=== PATIENT | male | born 1980 | race Hispanic/Latino ===

== ENCOUNTER 2020-07-07 03:23 | Emergency (ER) | payer OTHER ==
[2020-07-07 04:40] LABS: Absolute Lymphocytes (CBC) 1.7 K/uL (0.7-4.9); Basophils % 0.6 % (0-1.3); Hematocrit 47.3 % (39.6-49.0); Lymphocytes % 25.9 % (15.3-44.8); MPV 11.3 fL (7.6-11.3); RBC Red Blood Cell Count 5.07 M/uL (4.33-5.43)
[2020-07-07] MEDS ORDERED: ONDANSETRON 4 MG/2 ML VIAL ONE (04:43)
[2020-07-07] MEDS ORDERED: NA CHLORIDE 0.9% 1,000 ML ONE (04:43)
[2020-07-07 04:53] LABS: Albumin 3.8 g/dL (3.4-5.0); Bilirubin Direct 0.1 mg/dL (0-0.2); Bilirubin Total 0.4 mg/dL (0.2-1.0); Potassium 3.6 mmol/L (3.5-5.1); Protein, Total 8.4 g/dL (6.4-8.2)
--- NOTE | 2020-07-07 06:07 | EDPHYS ---
Physician Documentation [facility] Name: Lucas Ramos Age: 39 yrs Sex: Male : 1980 Arrival Date: 07/07/2020 Time: 03:26 Bed 17 Private MD: ED Physician Migue Monique HPI: 07/07 04:12 This 39 yrs old Male presents to ER via Ambulatory with complaints of Fever. pkl 04:12 The patient or guardian reports cough, described as mild, with productive sputum, that pkl is white. Onset: The symptoms/episode began/occurred 4 day(s) ago. Associated signs and symptoms: Pertinent positives: headache, abdominal pain diarrhea. Historical: - Allergies: 03:41 No Known Allergies; rv - PMHx: 03:41 None; rv - PSHx: 03:41 None; rv - Immunization history:: Adult Immunizations up to date. - Social history:: Smoking status: Patient denies any tobacco usage or history of. ROS: 04:12 Eyes: Negative for injury, pain, redness, and discharge, ENT: Negative for injury, pkl pain, and discharge. 04:12 Neck: Negative for stiffness. 04:12 Cardiovascular: Negative for chest pain. 04:12 Respiratory: Positive for cough, with clear sputum. 04:12 Abdomen/GI: Positive for abdominal pain, diarrhea, of the right upper quadrant and left upper quadrant. 04:12 Back: Negative for acute changes. 04:12 : Negative for urinary symptoms. 04:12 MS/extremity: Negative for acute changes. 04:12 Skin: Negative for rash. 04:12 Neuro: Negative for altered mental status. Exam: 04:12 Head/Face: Normocephalic, atraumatic. Eyes: Pupils equal round and reactive to light, pkl extra-ocular motions intact. Lids and lashes normal. Conjunctiva and sclera are non-icteric and not injected. Cornea within normal limits. Periorbital areas with no swelling, redness, or edema. ENT: Nares patent. No nasal discharge, no septal abnormalities noted. Tympanic membranes are normal and external auditory canals are clear. Oropharynx with no redness, swelling, or masses, exudates, or evidence of obstruction, uvula midline. Mucous membranes moist. Neck: Trachea midline, no thyromegaly or masses palpated, and no cervical lymphadenopathy. Supple, full range of motion without nuchal rigidity, or vertebral point tenderness. No Meningismus. Chest/axilla: Normal chest wall appearance and motion. Nontender with no deformity. No lesions are appreciated. Cardiovascular: Regular rate and rhythm with a normal S1 and S2. No gallops, murmurs, or rubs. Normal PMI, no JVD. No pulse deficits. Respiratory: Lungs have equal breath sounds bilaterally, clear to auscultation and percussion. No rales, rhonchi or wheezes noted. No increased work of breathing, no retractions or nasal flaring. Abdomen/GI: Soft, non-tender, with normal bowel sounds. No distension or tympany. No guarding or rebound. No evidence of tenderness throughout. Back: No spinal tenderness. No costovertebral tenderness. Full range of motion. Skin: Warm, dry with normal turgor. Normal color with no rashes, no lesions, and no evidence of cellulitis. MS/ Extremity: Pulses equal, no cyanosis. Neurovascular intact. Full, normal range of motion. Neuro: Awake and alert, GCS 15, oriented to person, place, time, and situation. Cranial nerves II-XII grossly intact. Motor strength 5/5 in all extremities. Sensory grossly intact. Cerebellar exam normal. Normal gait. Vital Signs: 03:37 BP 127 / 86 LA Sitting; Pulse 97 MON; Resp 18 S; Temp 99.4(O); Pulse Ox 98% on R/A; rv Weight 95.25 kg (R); Height 5 ft. 6 in. (167.64 cm) (R); Pain 6/10; 04:37 BP 96 / 64; Pulse 73; Resp 17; Pulse Ox 94% on R/A; rv 05:23 BP 110 / 67; Pulse 85; Resp 16; Pulse Ox 97% on R/A; rv 06:55 BP 105 / 72; Pulse 73; Resp 17; Pulse Ox 96% on R/A; rv 03:37 Body Mass Index 33.89 (95.25 kg, 167.64 cm) rv MDM: 03:53 Patient medically screened. pkl 05:58 Data reviewed: vital signs, nurses notes, lab test result(s), radiologic studies, CT pkl scan. ED course: Patient feeling better. Discussed lab. and CT Scan results with patient. Advised to isolate at home until Covid 19 results available. Return if necessary. Patient understood instructions. 07/07 04:11 Order name: CBC with Diff; Complete Time: 05:05 pkl 07/07 04:11 Order name: Chem 7; Complete Time: 05:05 pkl 07/07 04:11 Order name: Strep pkl 07/07 04:11 Order name: COVID-19 pkl 07/07 04:11 Order name: LFT's; Complete Time: 05:05 pkl 07/07 04:11 Order name: Lipase; Complete Time: 05:05 pkl 07/07 04:24 Order name: Chest Abdomen Pelvis W Cont EDMS Administered Medications: 04:35 Drug: NS 0.9% 1000 ml Route: IV; Rate: 1000 ml; Site: right antecubital; rv 07:06 Follow up: IV Status: Completed infusion; IV Intake: 1000ml rv 04:36 Drug: Zofran (Ondansetron) 4 mg Route: IVP; Site: right antecubital; rv 05:22 Follow up: Response: No adverse reaction; Marked relief of symptoms; Nausea is decreasedrv 06:02 Drug: Zithromax 500 mg Route: IVPB; Infused Over: 1 hrs; Site: right antecubital; rv 07:05 Follow up: IV Status: Completed infusion; IV Intake: 250ml rv Disposition: 07/07/20 06:06 Discharged to Home. Impression: Pneumonia. Possible Covid 19 infection. - Condition is Stable. - Prescriptions for Zithromax Z- Chava 250 mg Oral Tablet - take 1 tablet by ORAL route as directed for 5 days Day 1 - take two (2) tablets one time. Day 2, 3, 4 , 5 take one (1) tablet once daily.; 6 tablet. Guaifenesin AC 10- 100 mg/5 mL Oral Liquid - take 10 milliliters by ORAL route every 8 hours As needed; 120 milliliter. - Medication Reconciliation Form, Thank You Letter, Antibiotic Education, Prescription Opioid Use form. - Follow up: Private Physician; When: 2 - 3 days; Reason: Re-evaluation by your physician. - Problem is new. - Symptoms have improved. Signatures: [facility] Migue Monique MD MD pkSalomon Vargas RN RN rv Corrections: (The following items were deleted from the chart) 04:24 04:12 Chest Abdomen W/ Con+CT.RAD.BRZ ordered. EDMS EDMS 07:06 06:06 07/07/2020 06:06 Discharged to Home. Impression: Pneumonia. Possible Covid 19 rv infection. Condition is Stable. Forms are Medication Reconciliation Form, Thank You Letter, Antibiotic Education, Prescription Opioid Use. Follow up: Private Physician; When: 2 - 3 days; Reason: Re-evaluation by your physician. Problem is new. Symptoms have improved. pkl
--- NOTE | 2020-07-07 06:07 | ER ---
Nurse's Notes [facility] Name: Lucas Ramos Age: 39 yrs Sex: Male : 1980 Arrival Date: 07/07/2020 Time: 03:26 Bed 17 Private MD: Diagnosis: Pneumonia. Possible Covid 19 infection Presentation: 07/07 03:37 Chief complaint: Patient states: MUSCLE ACHE STARTED THURSDAY. THURSDAY, HAD FEVER, COUGH, rv HEADACHE. ALONG WITH DIARRHEA AND ABDOMINAL PAIN. DESCRIBED SHARP, INTERMITTENT, 6/10 PAIN SCALE. Coronavirus screen: Client denies travel out of the [place] in the last 14 days. cough unrelated to allergies, diarrhea, fever, headache, muscle pain, Client presents with at least one sign or symptom that may indicate coronavirus-19. Standard/surgical mask placed on the client. Provider contacted for isolation considerations. The client denies any previous COVID testing. Ebola Screen: No symptoms or risks identified at this time. Initial Sepsis Screen: Does the patient meet any 2 criteria? No. Patient's initial sepsis screen is negative. Does the patient have a suspected source of infection? No. Patient's initial sepsis screen is negative. Risk Assessment: Do you want to hurt yourself or someone else? Patient reports no desire to harm self or others. Onset of symptoms was July 02, 2020 at 08:00. 03:37 Method Of Arrival: Ambulatory 03:37 Acuity: STEPHEN 3 rv Triage Assessment: 03:41 General: Appears comfortable, Behavior is calm, cooperative. Pain: Complains of pain in rv abdomen Pain currently is 6 out of 10 on a pain scale. Quality of pain is described as sharp. EENT: No signs and/or symptoms were reported regarding the EENT system. Neuro: Level of Consciousness is awake, alert, obeys commands, Oriented to person, place, time, situation. Cardiovascular: Patient's skin is warm and dry. Respiratory: Airway is patent Respiratory effort is even, unlabored. GI: Abdomen is flat, non-distended, Reports lower abdominal pain, upper abdominal pain, diarrhea. Derm: Skin is intact. Musculoskeletal: Reports MUSCLE ACHES. Historical: - Allergies: 03:41 No Known Allergies; rv - PMHx: 03:41 None; rv - PSHx: 03:41 None; rv - Immunization history:: Adult Immunizations up to date. - Social history:: Smoking status: Patient denies any tobacco usage or history of. Screenin:42 Abuse screen: Denies threats or abuse. Denies injuries from another. Nutritional rv screening: No deficits noted. Tuberculosis screening: No symptoms or risk factors identified. Fall Risk None identified. Assessment: 06:56 Reassessment: Patient and/or family updated on plan of care and expected duration. Pain rv level reassessed. Patient is alert, oriented x 3, equal unlabored respirations, skin warm/dry/pink. Patient states feeling better. Patient states symptoms have improved. Neuro: Level of Consciousness is awake, alert, obeys commands, Oriented to person, place, time, situation. Cardiovascular: Patient's skin is warm and dry. Respiratory: Airway is patent Respiratory effort is even, unlabored. Vital Signs: 03:37 BP 127 / 86 LA Sitting; Pulse 97 MON; Resp 18 S; Temp 99.4(O); Pulse Ox 98% on R/A; rv Weight 95.25 kg (R); Height 5 ft. 6 in. (167.64 cm) (R); Pain 6/10; 04:37 BP 96 / 64; Pulse 73; Resp 17; Pulse Ox 94% on R/A; rv 05:23 BP 110 / 67; Pulse 85; Resp 16; Pulse Ox 97% on R/A; rv 06:55 BP 105 / 72; Pulse 73; Resp 17; Pulse Ox 96% on R/A; rv 03:37 Body Mass Index 33.89 (95.25 kg, 167.64 cm) rv ED Course: 03:26 Patient arrived in ED. ag3 03:30 Salomon Del Rosario, RN is Primary Nurse. rv 03:40 Triage completed. rv 03:42 Arm band placed on Patient placed in the treatment room, on a stretcher, Patient rv notified of wait time. 03:42 Patient has correct armband on for positive identification. Bed in low position. Call rv light in reach. Side rails up X 1. Pulse ox on. NIBP on. 03:53 Migue Monique MD is Attending Physician. pkl 04:24 Radiology exam delayed due to lab results not completed at this time. (BUN/Creatinine) kw1 IV insertion attempt and/or patient not having appropriate IV at this time. 04:25 Inserted saline lock: 18 gauge in right antecubital area, using aseptic technique. rv Blood collected. 04:25 Initial lab(s) drawn, by me, sent to lab. Strep swab sent to lab. covid 19 swab. rv 05:16 Chest Abdomen Pelvis W Cont In Process Unspecified. EDMS 05:[address] back from [address]. rv 07:05 No provider procedures requiring assistance completed. IV discontinued, intact, rv bleeding controlled, No redness/swelling at site. Pressure dressing applied. Administered Medications: 04:35 Drug: NS 0.9% 1000 ml Route: IV; Rate: 1000 ml; Site: right antecubital; rv 07:06 Follow up: IV Status: Completed infusion; IV Intake: 1000ml rv 04:36 Drug: Zofran (Ondansetron) 4 mg Route: IVP; Site: right antecubital; rv 05:22 Follow up: Response: No adverse reaction; Marked relief of symptoms; Nausea is decreasedrv 06:02 Drug: Zithromax 500 mg Route: IVPB; Infused Over: 1 hrs; Site: right antecubital; rv 07:05 Follow up: IV Status: Completed infusion; IV Intake: 250ml rv Intake: 07:05 IV: 250ml; Total: 250ml. rv 07:06 IV: 1000ml; Total: 1250ml. rv Outcome: 06:06 Discharge ordered by . francesca 07:05 Discharged to home ambulatory. rv 07:05 Condition: good 07:05 Discharge instructions given to patient, Instructed on discharge instructions, follow up and referral plans. medication usage, Demonstrated understanding of instructions, follow-up care, medications, Prescriptions given X 2. 07:06 Patient left the ED. rv Addendum: 07/09/2020 17:55 Addendum: COVID-19 Result: Positive result giiven to ED physician to notify pt. i w Physician: Escobar Mckenzie MD Physician attempted to contact pt. Physician left voice mail for pt to call the ED back. 18:40 Addendum: COVID-19 Result: Positive result giiven to ED physician to notify pt. i w Physician: Dimitri Ramirez MD Physician attempted to contact pt. Physician left voice mail for pt to call the ED back. Signatures: Dispatcher [facility] Migue Monique MD MD pkl Williams, Irene, RN RN Babita Nelson kw1 Salomon Del Rosario, RN RN rv Lucía Osborn ag3
[2020-07-07] MEDS ORDERED: AZITHROMYCIN 500 MG INJ IVPB ONE (06:08)
[2020-07-07] MEDS ORDERED: NA CHLORIDE 0.9% 250 ML ONE (06:08)
[2020-07-07 07:11] VITALS: TEMP 99.4
[2020-07-07 07:15] VITALS: BP 105/72; O2SAT 96
--- NOTE | 2020-07-09 10:04 | RAD REPORT ---
EXAM DESCRIPTION: CT Chest, Abdomen and Pelvis With Intravenous Contrast CLINICAL HISTORY: The patient is 39 years old and is Male; abd. pain;Cough TECHNIQUE: Axial computed tomography images of the chest, abdomen and pelvis with intravenous contra st. Sagittal and coronal reformatted images were created and reviewed. This CT exam was performed using one or more of the following dose reduction techniques: automated exposure control, adjustme nt of the mA and/or kV according to patient size, and/or use of iterative reconstruction technique. COMPARISON: No relevant prior studies available. FINDINGS: CHEST: Lungs: Small peripheral areas of airspace opacification in the bilateral lower lobes. There are also peripheral groundglass opacities bilaterally. Pleural space: No pleural effusion or pneumothorax. Heart: Borderline cardiac enlargement. No significant pericardial fluid. Prominent pericardial f at pad. ABDOMEN: Liver: Marked fatty infiltration of the liver. Gallbladder and bile ducts: Unremarkable. No calcified stones. No ductal dilation. Pancreas: No findings to suggest acute pancreatitis. No mass visualized. No ductal dilation. Spleen: Unremarkable. No splenomegaly. Adrenals: Unremarkable. No mass. Kidneys and ureters: Unremarkable. No hydronephrosis. No solid mass. Stomach and bowel: No bowel dilatation or obstruction. No bowel wall thickening. PELVIS: Appendix: The visualized appendix is normal. No pericecal inflammation to suggest acute appendic itis. Bladder: Unremarkable. No mass. Reproductive: Mild prostate gland enlargement. CHEST, ABDOMEN and PELVIS: Intraperitoneal space: Unremarkable. No significant fluid collection. No free air. Bones/joints: No acute fracture visualized. No dislocation. Soft tissues: Unremarkable. Vasculature: No central PE visualized. No aortic aneurysm. Lymph nodes: No pathologically enlarged mediastinal or hilar lymph nodes. IMPRESSION: 1. Small peripheral areas of airspace opacification in the bilateral lower lobes. Ther e are also peripheral groundglass opacities bilaterally. Commonly reported imaging features of viral pneumonia are present. Other processes such as influenza pneumonia and organizing pneumonia, as can b e seen with drug toxicity and connective tissue disease, can cause a similar imaging pattern. PneTyp 2. No acute obstructive or inflammatory process identified. Normal appendix. 3. Marked fatty infiltration of the liver. Electronically signed by: Ebonie Pruitt MD 07/07/2020 5:37 AM CDT Due to temporary technical issues with the PACS/Fluency reporting system, reports are being signed by the in house radiologist without review as a courtesy to ensure prompt reporting. The interpreting r adiologist is fully responsible for the content of the report.
== END 2020-07-07 07:06 | disposition home or self-care (01) ==
LOC: ER 03:23
DX: U07.1 COVID-19 (principal); J18.9 Pneumonia, unspecified organism
CPT/HCPCS: 96365; 96361; 87070; 85025; 80048; 36415; 82565; 80076; 87081; 83690; 71260; 74177; 96375; 99284; U0002; Q9967; J0456; J7050; J7030; J2405

== ENCOUNTER 2023-05-17 02:25 | Emergency (ER) | payer BC, SELFPAY ==
[2023-05-17 03:04] LABS: Absolute Lymphocytes (CBC) 2.3 K/uL (0.7-4.9); Hematocrit 45.9 % (39.6-49.0); Lymphocytes % 36.1 % (15.3-44.8); MCV 92.6 fL (80-100); MPV 10.4 fL (7.6-11.3); RBC Red Blood Cell Count 4.96 M/uL (4.33-5.43)
[2023-05-17 03:08] LABS: Protime INR 0.96
[2023-05-17 03:35] LABS: ALT/SGPT 49 U/L (16-61); AST/SGOT 22 U/L (15-37); Albumin 3.9 g/dL (3.4-5.0); Alkaline Phosphatase 74 U/L (45-117); BUN Blood Urea Nitrogen 8 mg/dL (7-18); Bicarbonate 23 mEq/L (21-32); Bilirubin Total 0.3 mg/dL (0.2-1.0); Glomerular Filtration Rate 111 ml/min (=/>90); Glucose Level 105 mg/dL (74-106); Potassium 3.6 mEq/L (3.5-5.1); Protein, Total 8.1 g/dL (6.4-8.2); Sodium Level 140 mEq/L (136-145)
[2023-05-17 03:40] LABS: Bilirubin Direct < 0.1 mg/dL (0-0.2); Bilirubin Indirect, Calculated ND mg/dL (0.2-0.8)
[2023-05-17] MEDS ORDERED: Ringers Lactate 1,000 ML IV ONE (03:51)
[2023-05-17 03:59] LABS: Urine Bilirubin NEGATIVE (Negative); Urine Blood 1+ (Negative); Urine Clarity Clear (Clear); Urine Color Light-Yellow (Yellow); Urine Glucose NEGATIVE (Negative); Urine Protein NEGATIVE (Negative); Urine RBC <5 /HPF (None Seen); Urine Urobilinogen Normal (Normal)
[2023-05-17 04:00] LABS: Barbiturates NEGATIVE (NEGATIVE); Benzodiazepines NEGATIVE (NEGATIVE); Cocaine NEGATIVE (NEGATIVE); METHAMPHETAM NEGATIVE (NEGATIVE); Methadone NEGATIVE (NEGATIVE); Opiates NEGATIVE (NEGATIVE); Phencyclidine NEGATIVE (NEGATIVE); THC Cannibis NEGATIVE (NEGATIVE); Transitional Epithelial <5 /HPF (None Seen); Urine Bacteria None Seen /HPF (<20)
--- NOTE | 2023-05-17 06:25 | EDPHYS ---
Physician Documentation [facility] Name: Lucas Ramos Age: 42 yrs Sex: Male : 1980 Arrival Date: 05/17/2023 Time: 02:25 Bed 3 Private MD: ED Physician Amadou León HPI: 05/17 03:31 This 42 yrs old Male presents to ER via EMS with complaints of medication ms3 overdose. 03:31 42-year-old male with unknown past medical history presents via [facility] ms3 after found with the pill bottle of 100 mg losartan/12.5 mg hydrochlorothiazide eating them. Patient's removed approximately 7 pills from patient's mouth. EMS states patient had approximately 6 beers and shots of alcohol tonight. On EMS arrival patient was unresponsive.. Historical: - Allergies: 02:40 Unable to obtain; lg3 - PMHx: 02:40 Unable to Obtain; lg3 - PSHx: 02:40 Unable to Obtain; lg3 - Immunization history:: Adult Immunizations unknown. - Social history:: Smoking status: unknown. ROS: 03:31 Unable to obtain ROS due to obtunded state. ms3 06:27 Constitutional: Negative for fever, and chills. ENT: Negative for injury, pain, and ms3 discharge, Neck: Negative for injury, pain, and swelling, Cardiovascular: Negative for chest pain, and palpitations. Respiratory: Negative for shortness of breath, cough, wheezing, and pleuritic chest pain, Abdomen/GI: Negative for abdominal pain, nausea, vomiting, diarrhea, and constipation, MS/Extremity: Negative for injury and deformity, Skin: Negative for injury, rash, and discoloration. 06:27 All other systems are negative. Exam: 03:31 Constitutional: This is a well developed, well nourished patient who is awake, alert, ms3 and in no acute distress. Head/Face: Normocephalic, atraumatic. Eyes: Pupils equal round and reactive to light, extra-ocular motions intact. Lids and lashes normal. Conjunctiva and sclera are non-icteric and not injected. Periorbital areas with no swelling, redness, or edema. Neck: Trachea midline, no cervical lymphadenopathy. Supple, full range of motion without nuchal rigidity, or vertebral point tenderness. No Meningismus. Chest/axilla: Normal chest wall appearance and motion. Nontender with no deformity. Cardiovascular: Regular rate and rhythm with a normal S1 and S2. No gallops, murmurs, or rubs. Normal PMI, no JVD. No pulse deficits. Respiratory: Lungs have equal breath sounds bilaterally, clear to auscultation and percussion. No rales, rhonchi or wheezes noted. No increased work of breathing, no retractions or nasal flaring. Abdomen/GI: Soft, non-tender, with normal bowel sounds. No distension or tympany. No guarding or rebound. No evidence of tenderness throughout. Skin: Warm, dry with normal turgor. Normal color with no rashes, no lesions, and no evidence of cellulitis. 03:31 Neuro: Orientation: unable to test, the patient is comatose, Mentation: unable to test, the patient is comatose, Memory: unable to test, the patient is comatose, Cranial nerves: unable to test, the patient is comatose, Cerebellar function: unable to test, the patient is comatose, Motor: unable to test, the patient is comatose. 03:34 ECG was reviewed by the Attending Physician. ms3 Vital Signs: 02:37 BP 137 / 82; Pulse 68; Resp 18 S; Temp 98.4(A); Pulse Ox 96% on R/A; Weight 93 kg (M); lg3 Height 5 ft. 10 in. ; 03:32 BP 101 / 60; Pulse 71; Resp 21; Pulse Ox 96% on R/A; lg3 04:16 BP 96 / 65; Pulse 64; Resp 16 S; Pulse Ox 98% on R/A; lg3 06:40 BP 105 / 77; Pulse 60; Resp 18 S; Pulse Ox 96% on R/A; as7 02:37 Body Mass Index 29.42 (93.00 kg, 177.8 cm) lg3 MDM: 02:34 Patient medically screened. cp 03:31 Differential diagnosis: Ingestion/exposure to Losartan/HCTZ Alcohol intoxication vs ms3 Polysubstance ingestion. 04:15 ED course: Patient awake at this time. Patient states he went to the bar drinking with ms3 his friends. He does not remember leaving the bar. Patient is aware he is at the hospital. Will continue to monitor. 06: Data reviewed: vital signs, nurses notes, lab test result(s), EKG, radiologic studies, ms3 CT scan, and as a result, I will discharge patient. I considered the following discharge prescriptions or medication management in the emergency department Medications were administered in the Emergency Department. See MAR. Independent interpretation of the following test(s) in the Emergency Department CT Scan: My interpretation is CT Head images reviewed and do not show ICH.. Historians other than the Patient: EMS: [facility]. Counseling: I had a detailed discussion with the patient and/or guardian regarding: the historical points, exam findings, and any diagnostic results supporting the discharge/admit diagnosis, lab results, radiology results, the need for outpatient follow up, to return to the emergency department if symptoms worsen or persist or if there are any questions or concerns that arise at home. Response to treatment: the patient's symptoms have resolved after treatment, the patient's condition has returned to base line, and as a result, I will discharge patient. Special discussion: I discussed with the patient/guardian in detail that at this point there is no indication for admission to the hospital. It is understood, however, that if the symptoms persist or worsen the patient needs to return immediately for re-evaluation. ED course: Patient alert and oriented x4, no apparent distress, nontoxic-appearing. Patient states he is not suicidal and was intoxicated when he took his hypertension medications. Patient's is at bedside and states she is comfortable with patient going home and will call for help if help is needed. Discussed alcohol moderation with patient. Patient understands agrees with plan. All questions were answered. Return precautions discussed include worsening symptoms, or any other concerns.. 05/17 02:45 Order name: Acetaminophen; Complete Time: 03:51 cp 05/17 02:45 Order name: Basic Metabolic Panel; Complete Time: 03:51 cp 05/17 02:45 Order name: CBC with Diff; Complete Time: 03:17 cp 05/17 02:45 Order name: ETOH Level; Complete Time: 03:17 cp 05/17 02:45 Order name: Hepatic Function; Complete Time: 03:51 cp 05/17 02:45 Order name: PT-INR; Complete Time: 03:17 cp 05/17 02:45 Order name: Ptt, Activated; Complete Time: 03:17 cp 05/17 02:45 Order name: Salicylate; Complete Time: 03:17 cp 05/17 02:45 Order name: Urinalysis w/ reflexes; Complete Time: 04:06 cp 05/17 02:45 Order name: Urine Drug Screen; Complete Time: 04:06 cp 05/17 03:51 Order name: Head Brain Wo Cont CT la1 05/17 02:45 Order name: EKG; Complete Time: 02:46 cp 05/17 02:45 Order name: EKG - Nurse/Tech; Complete Time: 02:52 cp 05/17 02:45 Order name: IV Saline Lock; Complete Time: 02:52 cp 05/17 02:45 Order name: Labs collected and sent; Complete Time: 02:52 cp 05/17 02:45 Order name: Suicide Screening (Colon); Complete Time: 04:18 cp EC:34 Rate is 68 beats/min. Rhythm is regular. QRS [place] is Normal. [place] interval is normal. QRS ms3 interval is normal. QT interval is normal. Clinical impression: Normal ECG. Interpreted by me. Reviewed by me. Administered Medications: 03:46 Drug: Lactated Ringers Solution IV 1000 ml Route: IV; Rate: bolus; Site: left forearm; lg3 Disposition Summary: 05/17/23 06:24 Discharge Ordered Location: Home ms3 Condition: Stable ms3 Diagnosis - Alcohol abuse with intoxication ms3 - Losartan/HCTZ overdose ms3 Followup: ms3 - With: Lonnie Oviedo MD - When: 2 - 3 days - Reason: Re-evaluation by your physician Discharge Instructions: - Discharge Summary Sheet ms3 - Alcohol Intoxication ms3 Forms: - Medication Reconciliation Form ms3 - Thank You Letter ms3 - Antibiotic Education ms3 - Prescription Opioid Use ms3 Signatures: Dispatcher [employer] EDMS Joey Sanchez, CAFETERIA SERVER-C CAFETERIA SERVER-Cla1 Dimitri Wharton PA PA cp Gibson, Lacie, ANANT RN lg3 Amadou León DO DO ms3
--- NOTE | 2023-05-17 06:25 | ER ---
Nurse's Notes [facility] Name: Lucas Ramos Age: 42 yrs Sex: Male : 1980 Arrival Date: 05/17/2023 Time: 02:25 Bed 3 Private MD: Diagnosis: Alcohol abuse with intoxication;Losartan/HCTZ overdose Presentation: 05/17 02:37 Chief complaint: EMS states: pt found on bathroom floor by spouse at approximately 0130 lg3 unresponsive with a bottle of losartan in hand. bottle originally contained 90 pills and 29 remain in bottle now. unknown amount of ingestion. spouse also states that pt has had roughly 6 beers and a few shots today. Coronavirus screen: At this time, unable to obtain information related to travel outside the [place] Ebola Screen: No symptoms or risks identified at this time. Initial Sepsis Screen: Does the patient meet any 2 criteria? No. Patient's initial sepsis screen is negative. Does the patient have a suspected source of infection? No. Patient's initial sepsis screen is negative. Risk Assessment: Do you want to hurt yourself or someone else? Patient reports no desire to harm self or others. Onset of symptoms is unknown. 02:37 Method Of Arrival: EMS: [facility] lg3 02:37 Acuity: STEPHEN 2 lg3 04:20 Risk Assessment: Do you want to hurt yourself or someone else? Patient reports no lg3 desire to harm self or others. Triage Assessment: 02:40 General: Appears well groomed, Behavior is unresponsive. Pain: Unable to use pain lg3 scale. Patient is unresponsive. EENT: No deficits noted. Neuro: Rahman Agitation-Sedation Scale (RASS): -5 Unarousable Pupils are PERRLA. Cardiovascular: No deficits noted. Capillary refill < 3 seconds Clubbing of nail beds is absent JVD is absent Patient's skin is warm and dry. Rhythm is sinus rhythm. Respiratory: No deficits noted. Airway is patent Respiratory effort is even, unlabored, Respiratory pattern is regular, symmetrical, Breath sounds are clear bilaterally. GI: No deficits noted. Abdomen is round non-distended, obese, Bowel sounds present X 4 quads. : No deficits noted. Derm: No deficits noted. Skin is intact, is healthy with good turgor, Skin is dry, Skin is normal, Skin temperature is warm. Musculoskeletal: Circulation, motion, and sensation intact. Historical: - Allergies: 02:40 Unable to obtain; lg3 - PMHx: 02:40 Unable to Obtain; lg3 - PSHx: 02:40 Unable to Obtain; lg3 - Immunization history:: Adult Immunizations unknown. - Social history:: Smoking status: unknown. Screenin:42 [facility] ED Fall Risk Assessment (Adult) History of falling in the last 3 months, lg3 including since admission No falls in past 3 months (0 pts). Abuse screen: unable to obtain. Nutritional screening: No deficits noted. Tuberculosis screening: No symptoms or risk factors identified. 04:18 Abuse screen: Denies threats or abuse. Denies injuries from another. lg3 Assessment: 02:42 General: see triage assessment. lg3 02:55 General: poison control case #: [id number]. lg3 02:56 General: per poison control, pt status is unlikely caused by ingestion of losartan. lg3 continue with cardiac monitoring, toxicology and observe until pt is back to baseline. . 03:33 Neuro: Level of Consciousness is unresponsive. lg3 04:16 General: Appears in no apparent distress. comfortable, Behavior is calm, cooperative. lg3 Pain: Denies pain. Neuro: Rahman Agitation-Sedation Scale (RASS): -1 Drowsy Level of Consciousness is awake, obeys commands, Oriented to person, place, time. Cardiovascular: No deficits noted. Denies chest pain, shortness of breath. Respiratory: No deficits noted. Airway is patent Respiratory effort is even, unlabored, Respiratory pattern is regular, symmetrical. 06:40 General: Appears in no apparent distress. comfortable, Behavior is calm, cooperative. lg3 Pain: Denies pain. Neuro: No deficits noted. Rahman Agitation-Sedation Scale (RASS): 0 - Alert and Calm Level of Consciousness is awake, alert, obeys commands, Oriented to person, place, time, situation. Cardiovascular: No deficits noted. Denies chest pain, shortness of breath, Capillary refill < 3 seconds Clubbing of nail beds is absent JVD is absent Patient's skin is warm and dry. Respiratory: No deficits noted. Airway is patent Respiratory effort is even, unlabored, Respiratory pattern is regular, symmetrical. Vital Signs: 02:37 BP 137 / 82; Pulse 68; Resp 18 S; Temp 98.4(A); Pulse Ox 96% on R/A; Weight 93 kg (M); lg3 Height 5 ft. 10 in. ; 03:32 BP 101 / 60; Pulse 71; Resp 21; Pulse Ox 96% on R/A; lg3 04:16 BP 96 / 65; Pulse 64; Resp 16 S; Pulse Ox 98% on R/A; lg3 06:40 BP 105 / 77; Pulse 60; Resp 18 S; Pulse Ox 96% on R/A; as7 02:37 Body Mass Index 29.42 (93.00 kg, 177.8 cm) lg3 ED Course: 02:33 Patient arrived in ED. lg3 02:34 Amadou León DO is Attending Physician. cp 02:37 Christin Loya RN is Primary Nurse. lg3 02:40 Triage completed. lg3 02:40 Arm band placed on right wrist. lg3 02:42 Patient has correct armband on for positive identification. Placed in gown. Bed in low lg3 position. Call light in reach. Side rails up X2. Client placed on continuous cardiac and pulse oximetry monitoring. NIBP monitoring applied. rubber liner on. Warm blanket given. 02:42 Maintain EMS IV. Dressing intact. Good blood return noted. Site clean \T\ dry. Gauge \T\ lg 3 site: 18 LFA. Patient maintains SpO2 saturation greater than 95% on room air. 02:52 Acetaminophen Sent. rv1 02:52 Basic Metabolic Panel Sent. rv1 02:52 CBC with Diff Sent. rv1 02:52 ETOH Level Sent. rv1 02:52 Hepatic Function Sent. rv1 02:52 PT-INR Sent. rv1 02:52 Ptt, Activated Sent. rv1 02:52 Salicylate Sent. rv1 03:41 Urinalysis w/ reflexes Sent. as7 03:41 Urine Drug Screen Sent. as7 04:55 Head Brain Wo Cont CT In Process Unspecified. EDMS 06:24 Lonnie Oviedo MD is Referral Physician. ms3 06:40 No provider procedures requiring assistance completed. IV discontinued, intact, lg3 bleeding controlled, No redness/swelling at site. Pressure dressing applied. Administered Medications: 03:46 Drug: Lactated Ringers Solution IV 1000 ml Route: IV; Rate: bolus; Site: left forearm; lg3 Medication: 06:40 VIS not applicable for this client. lg3 Outcome: 06:24 Discharge ordered by . ms3 06:40 Discharged to home ambulatory. 3 06:40 Condition: stable 06:40 Discharge instructions given to patient, Instructed on discharge instructions, follow up and referral plans. Demonstrated understanding of instructions, follow-up care. 06:41 Patient left the ED. 3 Signatures: Dispatcher [employer] EDMS Dimitri Wharton PA PA cp Gibson, Lacie, RN RN lg3 Amadou León DO DO ms3 Ayah Alonzo rv1 Dawna Rosa as7 Corrections: (The following items were deleted from the chart) 02:58 02:37 Chief complaint: EMS states: pt found on bathroom floor by spouse at [facility] approximately 0130 unresponsive with a bottle of losartan in hand. bottle originally contained 90 pills and 29 remain in bottle now. unknown amount if ingestion. spouse also states that pt has had roughly 6 beers and a few shots today 3
[2023-05-17 06:47] VITALS: TEMP 98.4
[2023-05-17 06:51] VITALS: BP 105/77; O2SAT 96
--- NOTE | 2023-05-17 14:20 | EKG ---
Test Date: 2023-05-17 Test Time: 02:32:07 Motor Vehicle Examiner: MEASUREMENT RESULTS: Intervals: Rate: 68 VA: 188 QRSD: 84 QT: 388 QTc: 412 [place]: P: 40 VA: 188 QRS: 89 T: 52 INTERPRETIVE STATEMENTS: Normal sinus rhythm Normal ECG No previous ECG available for comparison Electronically Signed On 05-17-23 14:19:58 CDT by Neil Quiroz
--- NOTE | 2023-05-18 12:50 | RAD REPORT ---
EXAM DESCRIPTION: CT Head/Brain Without Contrast CLINICAL HISTORY: Altered mental status COMPARISON: None. TECHNIQUE: Head/brain axial images acquired without contrast. Coronal and sagittal reformats created . Exam performed according to departmental dose-optimization program which includes automated exposur e control, adjustment of mA and/or kV according to patient size, and/or use of iterative reconstructi on technique. FINDINGS: No midline shift, mass effect, intracranial hemorrhage, or hydrocephalus. Brain parenchyma unremarkable. Paranasal sinuses clear. Mastoid air cells clear. No skull fracture or significant skull lesion. IMPRESSION: Unremarkable CT head/brain without contrast. Electronically signed by: Alex Reyes MD 05/17/2023 6:10 AM CDT Due to temporary technical issues with the PACS/Fluency reporting system, reports are being signed by the in house radiologist without review as a courtesy to ensure prompt reporting. The interpreting r adiologist is fully responsible for the content of the report.
== END 2023-05-17 06:41 | disposition home or self-care (01) ==
LOC: ER 02:25
DX: T50.2X1A Poisoning by carbonic-anhydrase inhibitors, benzothiadiazides and other diuretics, accidental (unintentional), initial encounter (principal); F10.129 Alcohol abuse with intoxication, unspecified
CPT/HCPCS: 93005; 85025; 81001; 80048; 36415; 85610; 80076; 85730; 80307; 70450; 99285; 80143; 80179; 82077; J7120

== ENCOUNTER 2023-05-21 17:34 | Emergency (ER) | payer BC ==
[2023-05-21] MEDS ORDERED: dexAMETHasone 10 MG/ML VIAL ONE (18:06)
[2023-05-21 18:29] LABS: SARS-CoV-2 Antigen Rapid Res Negative (Negative)
--- NOTE | 2023-05-21 18:52 | EDPHYS ---
Physician Documentation [facility] Name: Lucas Ramos Age: 42 yrs Sex: Male : 1980 Arrival Date: 05/21/2023 Time: 17:34 Bed IW1 Private MD: ED Physician Dagoberto Devine HPI: 05/21 17:43 This 42 yrs old Male presents to ER via Ambulatory with complaints of Sore jmm Throat, Fever. 17:43 The patient presents with sore throat. Onset: The symptoms/episode began/occurred jmm gradually, 1 day(s) ago. Modifying factors: The symptoms are alleviated by nothing, the symptoms are aggravated by nothing. Associated signs and symptoms: Pertinent positives: cough. The patient has experienced similar episodes in the past. Historical: - Allergies: 17:45 NKA; nj1 - PMHx: 17:45 Hypertensive disorder; nj1 - PSHx: 17:45 None; nj1 - Immunization history:: Client reports receiving the 2nd dose of the Covid vaccine. - Social history:: Smoking status: Patient denies any tobacco usage or history of. ROS: 17:43 Cardiovascular: Negative for chest pain, palpitations, and edema. jmm 17:43 Constitutional: Positive for body aches, fever. 17:43 ENT: Positive for sore throat. 17:43 Respiratory: Positive for cough. 17:43 All other systems are negative. Exam: 17:43 Constitutional: This is a well developed, well nourished patient who is awake, alert, jmm and in no acute distress. Head/Face: atraumatic. Eyes: EOMI, no conjunctival erythema appreciated 17:43 Neck: Trachea midline, Supple Chest/axilla: Normal chest wall appearance and motion. Cardiovascular: Regular rate and rhythm. No edema appreciated Respiratory: Normal respirations, no respiratory distress appreciated Abdomen/GI: Non distended Back: Normal ROM Skin: General appearance color normal MS/ Extremity: Moves all extremities, no obvious deformities appreciated, no edema noted to the lower extremities Neuro: Awake and alert Psych: Behavior is normal, Mood is normal, Patient is cooperative and pleasant 17:43 ENT: Posterior pharynx: Uvula: erythema, exudate, that is moderate, peritonsillar mass, is not appreciated. Vital Signs: 17:41 BP 141 / 90; Pulse 76; Resp 18; Temp 99.8; Pulse Ox 98% ; Weight 90.72 kg; Height 5 ft. nj1 6 in. ; Pain 8/10; 17:41 Body Mass Index 32.28 (90.72 kg, 167.64 cm) nj1 17:41 Pain Scale: Adult nj1 MDM: 17:43 Patient medically screened. [facility] 18:50 Data reviewed: vital signs, nurses notes, lab test result(s). I considered the [facility] following discharge prescriptions or medication management in the emergency department Medications were administered in the Emergency Department. See MAR. Counseling: I had a detailed discussion with the patient and/or guardian regarding: the historical points, exam findings, and any diagnostic results supporting the discharge/admit diagnosis, lab results, the need for outpatient follow up, to return to the emergency department if symptoms worsen or persist or if there are any questions or concerns that arise at home. 05/21 17:47 Order name: Influenza Screen (a \T\ B); Complete Time: 18:37 [facility] 05/21 17:47 Order name: Strep [facility] 05/21 17:47 Order name: SARS RAPID; Complete Time: 18:37 [facility] 05/21 18:32 Order name: Throat Culture EDMS Administered Medications: 18:02 Drug: Dexamethasone IM 10 mg Route: IM; Site: right deltoid; [facility] 18:56 Follow up: Response: No adverse reaction [facility] 18:02 CANCELLED (Physician Discretion): Clindamycin IM 600 mg IM once [facility] 18:56 Drug: Clindamycin PO 300 mg Route: PO; [facility] 19:16 Follow up: Response: No adverse reaction lg3 Disposition Summary: 05/21/23 18:51 Discharge Ordered Location: Home [facility] Condition: Stable [facility] Diagnosis - Acute pharyngitis, unspecified [facility] Followup: [facility] - With: Adwoa Mejias MD - When: 2 - 3 days - Reason: Recheck today's complaints, Continuance of care, Re-evaluation by your physician Discharge Instructions: - Discharge Summary Sheet [facility] - Pharyngitis [facility] Forms: - Medication Reconciliation Form [facility] - Thank You Letter [facility] - Antibiotic Education [facility] - Prescription Opioid Use [facility] - [email or web address] Prescriptions: - ondansetron 8 mg Oral Tablet,disintegrating - take 1 tablet by ORAL route every 4 to 6 hours As needed; 20 tablet; Refills: [facility] 0, Product Selection Permitted - Clindamycin HCl 300 mg Oral Capsule - take 1 capsule by ORAL route every 6 hours for 10 days; 40 capsule; Refills: 0, dina Product Selection Permitted Addendum: 05/23/2023 10:54 I reviewed the patient's care provided by the Advanced Practice Provider and agree with j r11 the diagnosis and treatment plan. Signatures: Dispatcher [employer] EDMS Cristian Serrano PA PA jmm Rosillo, Jose, MD MD [id number] Renee Nevarez RN RN kc6 Jyothi Sheridan RN RN nj1 Christin Loya RN lg3 Corrections: (The following items were deleted from the chart) 05/21 18:02 17:56 Clindamycin IM 600 mg IM once ordered. [place] kc6 18:02 18:02 Clindamycin IM 600 mg IM once ordered. 6 kc6
--- NOTE | 2023-05-21 18:52 | ER ---
Nurse's Notes [facility] Name: Lucas Ramos Age: 42 yrs Sex: Male : 1980 Arrival Date: 05/21/2023 Time: 17:34 Bed IW1 Private MD: Diagnosis: Acute pharyngitis, unspecified Presentation: 05/21 17:41 Chief complaint: Patient states: Sore throat, body aches, cough and fever since Thursday. nj1 Has not taken any OTC meds today. Coronavirus screen: Vaccine status: Patient reports receiving the 2nd dose of the covid vaccine. Ebola Screen: Patient denies travel to an Ebola-affected area in the 21 days before illness onset. Initial Sepsis Screen: Does the patient meet any 2 criteria? No. Patient's initial sepsis screen is negative. Does the patient have a suspected source of infection? No. Patient's initial sepsis screen is negative. Risk Assessment: Do you want to hurt yourself or someone else? Patient reports no desire to harm self or others. Onset of symptoms was May 18, 2023. 17:41 Method Of Arrival: Ambulatory banner 17:41 Acuity: STEPHEN 4 banner Historical: - Allergies: 17:45 NKA; nj1 - PMHx: 17:45 Hypertensive disorder; nj1 - PSHx: 17:45 None; nj1 - Immunization history:: Client reports receiving the 2nd dose of the Covid vaccine. - Social history:: Smoking status: Patient denies any tobacco usage or history of. Screenin:03 [facility] ED Fall Risk Assessment (Adult) History of falling in the last 3 months, kc6 including since admission No falls in past 3 months (0 pts) Confusion or Disorientation No (0 pts) Intoxicated or Sedated No (0 pts) Impaired Gait No (0 pts) Mobility Assist Device Used No (0 pt) Altered Elimination No (0 pt) Score/Fall Risk Level 0 - 2 = Low Risk Oriented to surroundings, Maintained a safe environment, Educated pt \\T\\ family on fall prevention, incl call for assistance when getting out of bed, Assessed \\T\\ reinforced patient's understanding of fall precautions, Hourly rounding (assess needs \\T\\ fall precautionary measures) done. Abuse screen: Denies threats or abuse. Denies injuries from another. Nutritional screening: No deficits noted. Tuberculosis screening: No symptoms or risk factors identified. Assessment: 18:02 General: Appears in no apparent distress. comfortable, ill, Behavior is calm, kc6 cooperative, appropriate for age. Pain: Complains of pain in "sore throat". Neuro: Level of Consciousness is awake, alert, obeys commands, Oriented to person, place, time, situation, Appropriate for age. Cardiovascular: Capillary refill < 3 seconds. Respiratory: Airway is patent Trachea midline Respiratory effort is even, unlabored, Respiratory pattern is regular, symmetrical, Breath sounds are clear bilaterally. GI: No signs and/or symptoms were reported involving the gastrointestinal system. : No signs and/or symptoms were reported regarding the genitourinary system. EENT: Throat is reddened has patchy exudate has enlarged tonsils bilaterally with gag reflex present. Derm: No signs and/or symptoms reported regarding the dermatologic system. Skin is intact, Skin is pink, warm \\T\\ dry. Musculoskeletal: No signs and/or symptoms reported regarding the musculoskeletal system. Circulation, motion, and sensation intact. Capillary refill < 3 seconds, Range of motion: intact in all extremities. Vital Signs: 17:41 BP 141 / 90; Pulse 76; Resp 18; Temp 99.8; Pulse Ox 98% ; Weight 90.72 kg; Height 5 ft. nj1 6 in. ; Pain 8/10; 17:41 Body Mass Index 32.28 (90.72 kg, 167.64 cm) nj1 17:41 Pain Scale: Adult banner ED Course: 17:39 Patient arrived in ED. im 17:39 Cristian Serrano PA is PHCP. [facility] 17:39 Dagoberto Devine MD is Attending Physician. [facility] 17:45 Triage completed. nj1 17:45 Arm band placed on right wrist. nj1 17:56 Renee Nevraez RN is Primary Nurse. kc6 18:02 SARS RAPID Sent. kc6 18:02 Strep Sent. kc6 18:02 Influenza Screen (a \\T\\ B) Sent. kc6 18:04 Patient has correct armband on for positive identification. Adult w/ patient. kc6 18:51 Adwoa Mejias MD is Referral Physician. [facility] 19:17 No provider procedures requiring assistance completed. Patient did not have IV access lg3 during this emergency room visit. Administered Medications: 18:02 Drug: Dexamethasone IM 10 mg Route: IM; Site: right deltoid; kc6 18:56 Follow up: Response: No adverse reaction nj1 18:02 CANCELLED (Physician Discretion): Clindamycin IM 600 mg IM once kc6 18:56 Drug: Clindamycin PO 300 mg Route: PO; nj1 19:16 Follow up: Response: No adverse reaction lg3 Medication: 19:17 VIS not applicable for this client. lg3 Outcome: 18:51 Discharge ordered by MD. [place] 19:16 Discharged to home ambulatory. lg3 19:16 Condition: stable 19:16 Discharge instructions given to patient, Instructed on discharge instructions, follow up and referral plans. medication usage, Demonstrated understanding of instructions, follow-up care, medications, Prescriptions given X 2. 19:17 Patient left the ED. lg3 Signatures: Cristian Serrano PA PA jmm Gibson, Lacie, RN RN lg3 Renee Nevarez RN RN kc6 Jyothi Sheridan RN RN nj1 Hanane Thompson
[2023-05-21 20:05] VITALS: BP 141/90; TEMP 99.8; O2SAT 98
== END 2023-05-21 19:17 | disposition home or self-care (01) ==
LOC: ER 17:34
DX: J02.9 Acute pharyngitis, unspecified (principal); R05.9 Cough, unspecified; Z20.822 Contact with and (suspected) exposure to COVID-19; I10 Essential (primary) hypertension
CPT/HCPCS: 87070; 36415; 87081; 87804 ×2; 96372; 99284; 87811; J1100